=== PATIENT | female | born 1975 | race Caucasian/White ===

== ENCOUNTER 2017-07-08 21:58 | Emergency (ER) | payer OTHER ==
[~2017-07-08] VITALS: Ht 172.7 cm; Wt 72.6 kg
[~2017-07-08 21:58] MED LIST: ACYCLOVIR800 MG PO; ANAPROX DS550 MG PO; ASPIRIN81 M1 PO; DAYPRO600 M1 PO; FIORICET 325 MG1 TAB PO; FLAGYL500 MG PO; HYDR12.5C PO; HYDROCODONE BIT1 T11 PO; MEDROL DOSEPAK4 MG PO; MOTRIN800 MG PO; Motrin,Rufen800 MG PO; NORFLEX100 MG PO; ROBAXIN750 MG PO; TRAMADOL HCL50 MG PO; ULTRAM50 MG PO; ZOFRAN ODT4 MG PO; ZOFRAN4 MG PO
[2017-07-08 22:00] VITALS: BP 151/56
[2017-07-08 22:40] LABS: BASO % 0.1 % (0.0-1.0); EOS # 0.1 10*3/uL (0.0-0.4); EOS % 1.3 % (1.0-4.0); HEMATOCRIT 40.3 % (37.0-47.0); HEMOGLOBIN 13.3 g/dl (12.0-16.0); LYMPH # 0.9 10*3/uL (1.3-4.4); MEAN CELL VOLUME 86.7 fl (81.0-99.0); MEAN CORPUSCULAR HGB 28.6 pg (27.0-31.0); MEAN PLATELET VOLUME 10.5 fl (9.6-12.3); MONO # 0.6 10*3/uL (0.1-1.0); MONO % 7.4 % (3.0-9.0); NEUT % 80.9 % (47.0-73.0); PLATELET COUNT AUTOMATED 214 10*3/uL (130-400); RED BLOOD COUNT 4.65 10*6/uL (4.10-5.10); RED CELL DISTRI WIDTH 13.2 % (0-14.5); WHITE BLOOD COUNT 8.7 10*3/uL (4.8-10.8)
[2017-07-08 22:55] LABS: ALBUMIN 3.4 gm/dl (3.1-4.5); ALKALINE PHOSPHATASE 111 U/L (45-117); BUN 19 mg/dl (7-24); CHLORIDE 108 mmol/L (98-107); CREATININE 0.68 mg/dL (0.55-1.02); LIPASE 181 U/L (73-393); POTASSIUM 3.1 mmol/L (3.5-5.1); SGOT/AST 21 IU/L (3-35); SGPT/ALT 27 U/L (12-78); SODIUM 144 mmol/L (136-145); TOTAL PROTEIN 7.1 gm/dL (6.4-8.2)
[2017-07-09] MEDS ORDERED: ZOFRAN ODT4 MG SL (00:06)
[2017-07-09] MEDS ORDERED: LOMOTIL 2.5-0.1 EACH PO (00:07)
== END 2017-07-09 00:39 | disposition home or self-care (01) ==
LOC: ED 21:58
PROVIDERS: Emergency Medicine Emergency Medical Services
DX: K52.9 Noninfective gastroenteritis and colitis, unspecified (principal); F10.10 Alcohol abuse, uncomplicated

== ENCOUNTER 2018-06-27 08:50 | Emergency (ER) | payer OTHER ==
[~2018-06-27] VITALS: Wt 74.8 kg
[2018-06-27 08:50] VITALS: BP 130/86
[~2018-06-27 08:50] MED LIST changes: +LOMOTIL 2.5-0.1 EACH PO; +ZOFRAN ODT4 MG SL
[2018-06-27 09:27] LABS: BILIRUBIN NEGATIVE (NEGATIVE); BLOOD TRACE-INTACT (NEGATIVE); CLARITY CLOUDY (CLEAR); COLOR YELLOW (YELLOW); GLUCOSE NEGATIVE (NEGATIVE); KETONE 2+ (NEGATIVE); LEUKO ESTERASE NEGATIVE (NEGATIVE); NITRITE NEGATIVE (NEGATIVE); SPECIFIC GRAVITY 1.025 (1.005-1.030)
[2018-06-27 09:41] LABS: BACTERIA 2+; MUCOUS 2+
[2018-06-27 10:41] LABS: BASO % 0.2 % (0.0-1.0); EOS # 0.1 10*3/uL (0.0-0.4); EOS % 1.3 % (1.0-4.0); HEMATOCRIT 41.6 % (37.0-47.0); HEMOGLOBIN 13.8 g/dl (12.0-16.0); LYMPH # 0.7 10*3/uL (1.3-4.4); MEAN CELL VOLUME 89.1 fl (81.0-99.0); MEAN CORPUSCULAR HGB 29.6 pg (27.0-31.0); MEAN CORPUSCULAR HGB CONC 33.2 g/dl (33.0-37.0); MONO # 0.3 10*3/uL (0.1-1.0); MONO % 5.2 % (3.0-9.0); NEUT # 4.9 10*3/uL (2.3-7.9); NEUT % 82.1 % (47.0-73.0); PLATELET COUNT AUTOMATED 170 10*3/uL (130-400); RED BLOOD COUNT 4.67 10*6/uL (4.10-5.10); RED CELL DISTRI WIDTH 12.9 % (0-14.5)
[2018-06-27 11:05] LABS: ALBUMIN 3.6 gm/dl (3.1-4.5); ALKALINE PHOSPHATASE 113 U/L (45-117); BUN 16 mg/dl (7-24); CHLORIDE 107 mmol/L (98-107); CREATININE 0.63 mg/dL (0.55-1.02); POTASSIUM 3.3 mmol/L (3.5-5.1); SGOT/AST 21 IU/L (3-35); SGPT/ALT 29 U/L (12-78); SODIUM 139 mmol/L (136-145)
[2018-06-27] MEDS ORDERED: K-TAB20 MEQ PO (11:57)
[2018-06-27] MEDS ORDERED: AMINOPHYLLIN200 MG PO (11:57)
[2018-11-04] MEDS ORDERED: Tobrex Ophth S2.5 ML OPH (09:22)
[2018-11-04] MEDS ORDERED: TYLENOL325 M1 PO (09:23)
[2018-11-04] MEDS ORDERED: Motrin,Rufen400 MG PO (09:23)
== END 2018-06-27 12:07 | disposition home or self-care (01) ==
LOC: ED 08:50
PROVIDERS: Physician Assistant
DX: N39.0 Urinary tract infection, site not specified (principal); E87.6 Hypokalemia; Z90.710 Acquired absence of both cervix and uterus

== ENCOUNTER 2019-05-13 09:00 | Emergency (ER) | payer OTHER ==
[~2019-05-13] VITALS: Ht 172.7 cm; Wt 90.7 kg
[~2019-05-13 09:00] MED LIST changes: +AMINOPHYLLIN200 MG PO; +K-TAB20 MEQ PO; +Motrin,Rufen400 MG PO; +TYLENOL325 M1 PO; +Tobrex Ophth S2.5 ML OPH
[2019-05-13 09:07] VITALS: BP 143/90
[2019-05-13] MEDS ORDERED: PREDNISONE20 M1 PO (12:26)
[2019-05-13] MEDS ORDERED: ROBAXIN-750750 MG PO (12:26)
== END 2019-05-13 13:20 | disposition home or self-care (01) ==
LOC: ED 09:00
DX: S33.5XXA Sprain of ligaments of lumbar spine, initial encounter (principal); M54.42 Lumbago with sciatica, left side; I10 Essential (primary) hypertension; G43.909 Migraine, unspecified, not intractable, without status migrainosus; X58.XXXA Exposure to other specified factors, initial encounter; Y93.89 Activity, other specified; Y92.89 Other specified places as the place of occurrence of the external cause; Y99.8 Other external cause status

== ENCOUNTER → 2019-07-05 | Outpatient (CLI) | payer OTHER ==
[~2019-07-05] MED LIST changes: +PREDNISONE20 M1 PO; +ROBAXIN-750750 MG PO
== END | disposition home or self-care (01) ==
LOC: MRI 07:41
DX: S33.5XXA Sprain of ligaments of lumbar spine, initial encounter (principal); M25.552 Pain in left hip; X58.XXXA Exposure to other specified factors, initial encounter; Y93.89 Activity, other specified; Y92.89 Other specified places as the place of occurrence of the external cause; Y99.8 Other external cause status

== ENCOUNTER 2021-07-18 10:39 | Emergency (ER) | payer BC ==
[~2021-07-18] VITALS: Ht 172.7 cm; Wt 95.3 kg
[2021-07-18 10:51] VITALS: BP 148/74
[2021-07-18 12:05] LABS: BASO % 0.4 % (0.0-1.0); EOS % 0.2 % (1.0-4.0); HEMATOCRIT 43.8 % (37.0-47.0); LYMPH # 0.7 10*3/uL (1.3-4.4); LYMPH % 8.1 % (27.0-41.0); MEAN CELL VOLUME 86.2 fl (81.0-99.0); MEAN CORPUSCULAR HGB 28.5 pg (27.0-31.0); MEAN CORPUSCULAR HGB CONC 33.1 g/dl (33.0-37.0); MEAN PLATELET VOLUME 10.3 fl (9.6-12.3); MONO # 0.5 10*3/uL (0.1-1.0); MONO % 5.5 % (3.0-9.0); NEUT % 85.3 % (47.0-73.0); PLATELET COUNT AUTOMATED 264 10*3/uL (130-400); RED BLOOD COUNT 5.08 10*6/uL (4.10-5.10); WHITE BLOOD COUNT 8.3 10*3/uL (4.8-10.8)
[2021-07-18 12:09] LABS: BILIRUBIN Negative (Negative); BLOOD Negative (Negative); CLARITY Clear (Clear); COLOR Yellow (Yellow); GLUCOSE Negative (Negative); KETONE 3+ (Negative); LEUKO ESTERASE Negative (Negative); NITRITE Negative (Negative); SPECIFIC GRAVITY 1.025 (1.001-1.030)
[2021-07-18 12:15] LABS: BACTERIA 2+; MUCOUS 1+; RBC 0-2 rbc/hpf (0-2)
[2021-07-18 12:20] LABS: ALKALINE PHOSPHATASE 133 U/L (45-117); BUN 24 mg/dl (7-24); CHLORIDE 109 mmol/L (98-107); CREATININE 0.83 mg/dL (0.55-1.02); LIPASE 101 U/L (73-393); POTASSIUM 3.5 mmol/L (3.5-5.1); SGOT/AST 29 IU/L (3-35); SGPT/ALT 34 U/L (12-78); SODIUM 141 mmol/L (136-145); TOTAL PROTEIN 7.8 gm/dL (6.4-8.2)
== END 2021-07-18 14:07 | disposition home or self-care (01) ==
LOC: ED 10:39
PROVIDERS: Physician Assistant
DX: G43.909 Migraine, unspecified, not intractable, without status migrainosus (principal); Z90.710 Acquired absence of both cervix and uterus

== ENCOUNTER 2021-09-18 16:47 | Emergency (ER) | payer BC ==
[~2021-09-18] VITALS: Ht 172.7 cm; Wt 95.3 kg
[2021-09-18 17:00] VITALS: BP 156/93
== END 2021-09-18 19:01 | disposition home or self-care (01) ==
LOC: ED 16:47
DX: S90.32XA Contusion of left foot, initial encounter (principal); G43.909 Migraine, unspecified, not intractable, without status migrainosus; Z90.710 Acquired absence of both cervix and uterus; W22.8XXA Striking against or struck by other objects, initial encounter; Y93.89 Activity, other specified; Y92.89 Other specified places as the place of occurrence of the external cause; Y99.8 Other external cause status

== ENCOUNTER 2021-10-14 17:19 | Emergency (ER) | payer OTHER ==
[~2021-10-14] VITALS: Ht 172.7 cm; Wt 95.3 kg
[2021-10-14 17:22] VITALS: BP 163/74
[2021-10-14] MEDS ORDERED: NAPROSYN500 MG PO (21:16)
[2021-10-14] MEDS ORDERED: ZANAFLEX4 MG PO (21:16)
== END 2021-10-14 21:23 | disposition home or self-care (01) ==
LOC: ED 17:19
DX: S10.93XA Contusion of unspecified part of neck, initial encounter (principal); S00.93XA Contusion of unspecified part of head, initial encounter; V43.52XA Car driver injured in collision with other type car in traffic accident, initial encounter; Z90.710 Acquired absence of both cervix and uterus; Y93.89 Activity, other specified; Y92.89 Other specified places as the place of occurrence of the external cause; Y99.8 Other external cause status